=== PATIENT | female | born 1955 | race Caucasian/White ===

== ENCOUNTER 2025-03-18 18:17 | Emergency (ER) | payer MEDICARE ==
[2025-03-18 18:43] VITALS: TEMP 97.2
[2025-03-18 19:42] LABS: BASOPHIL % 0.7 % (0.1-1.2); Basophil (Absolute #) 0.07 x10^3/uL (0.01-0.08); Eosinophil (Absolute #) 0.12 x10^3/uL (0.04-0.36); Hematocrit 34.9 % (34.1-44.9); Hemoglobin 10.5 g/dL (11.2-15.7); IMMATURE GRAN # 0.03 x10^3u/L (0.001-0.031); IMMATURE GRAN % 0.3 % (0.001-0.429); Lymphocyte (Absolute #) 1.14 x10^3/uL (1.18-3.74); Mean Corpuscular Hemoglobin 25.3 pg (25.6-32.2); Mean Corpuscular Hgb Concent. 30.1 g/dL (32.2-35.5); Monocyte (Absolute #) 0.68 x10^3/uL (0.24-0.86); NUCLEATED RBC # 0.00 x10^3u/L (0.00-0.012); NUCLEATED RBC % 0.0 % (0.00-0.2); Platelet Count 396 x10^3/uL (182-369); Red Blood Count 4.15 x10^6/uL (3.93-5.22); White Blood Count 9.7 x10^3/uL (3.98-10.04)
[2025-03-18 20:03] LABS: Calcium 9.6 mg/dL (8.4-10.2); Carbon Dioxide 27.0 mmol/L (22-30); Creatinine 1 1.55 mg/dL (0.52-1.04); EST GLOMERULAR FILTRATION RATE 35.4 ML/MIN; Glucose 104.0 mg/dL (74-106); Potassium 4.5 mmol/L (3.5-5.1); SGOT/AST 23.0 U/L (14-36); SGPT/ALT 19.0 U/L (0-35); Total Protein 6.6 g/dL (6.3-8.2)
--- NOTE | 2025-03-18 20:05 | ERPHSYRPT ---
- History of Present Illness Time Seen by Provider: 03/18/25 19:15 Source: patient, family Patient Subjective Stated Complaint: I was at [employer] and sat down in a chair and everything started going "white and I was sweaty". Triage Nursing Assessment: Patient arrived by ambulance, transferred self to bed, vitals wnl, skin warm, dry, pink. Lungs clear, no resp distress. radial bilat pulses regular. 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 no edema to BLE. Patient denies any chest pain or SOB. Physician History: Syncope, patient had 2 syncopal episodes prior to coming to the Emergency Department, she apparently been cooking most of the day sat down in the chair and then blacked out for about 10 seconds, she apparently had not eaten or drinking anything most of the afternoon, she has had a 20 pound weight loss since starting [email or web address], At the time examination she denied any chest pain, abdominal pain, N/V or Headache. Witnessed: by family Prior Episodes: multiple episodes today Timing/Duration: today Context: sitting Loss of Consciousness: brief (seconds) Charcter of event(s): became unresponsive Allergies/Adverse Reactions: Sulfa (Sulfonamide Antibiotics) Adverse Reaction (Unknown, Verified 07/15/21 09:39) Home Medications: Levothyroxine Sodium 75 Mcg [Synthroid 75 Mcg] 75 mcg PO DAILY 02/27/17 [History] Metoprolol Succinate 25 mg PO BID 02/27/17 [History] lisinopriL [Zestril] 5 mg PO DAILY 02/27/17 [History] Hx Tetanus, Diphtheria Vaccination/Date Given: Yes Hx Influenza Vaccination/Date Given: Yes Hx Pneumococcal Vaccination/Date Given: Yes Immunizations Up to Date: Yes Travel Risk - International Travel Have you traveled outside of the country in past 3 weeks: No - Emerging Infectious Disease Are you exhibiting symptoms associated with any current EIDs: No - Past Medical History Pertinent Past Medical History: Yes Neurological History: No Pertinent History ENT History: No Pertinent History Cardiac History: Hypertension, Myocardial Infarction ([place]) Respiratory History: Asthma, COPD Endocrine Medical History: Hypothyroidism Musculoskeletal History: Osteoarthritis GI Medical History: No Pertinent History, GERD, Gallbladder Disease History: No Pertinent History Psycho-Social History: No Pertinent History Female Reproductive Disorders: No Pertinent History Other Medical History: R TKA 11/13/22 - Past Surgical History Past Surgical History: Yes Neuro Surgical History: No Pertinent History Cardiac: No Pertinent History Respiratory: No Pertinent History Gastrointestinal: Cholecystectomy Genitourinary: No Pertinent History Musculoskeletal: Joint Replacement Female Surgical History: Tubal Ligation, Dilation & Curettage Other Surgical History: D&C x two, bilat knee replacements - Social History Smoking Status: Never smoker Exposure to second hand smoke: No Drug Use: none - Social Determinants of Health Will the patient participate in the screening: Declined to provide Physical Exam - Nursing Vital Signs Nursing Vital Signs: Initial Vital Signs Temperature 97.2 F 03/18/25 18:17 Pulse Rate 77 03/18/25 18:17 Respiratory Rate 14 03/18/25 18:17 Blood Pressure 120/87 03/18/25 18:17 O2 Sat by Pulse Oximetry 97 03/18/25 18:17 Pain Scale Pain Intensity 0 - Physical Exam General Appearance: no apparent distress, alert Eye Exam: bilateral eye: PERRL, EOMI Ears, Nose, Throat Exam: normal ENT inspection, pharynx normal, moist mucous membranes Neck Exam: normal inspection, non-tender, supple, full range of motion Respiratory: normal breath sounds, lungs clear, No chest tenderness, No respiratory distress Cardiovascular: regular rate/rhythm, capillary refill <2 sec, No murmur, No pulse deficit Gastrointestinal: soft, No tenderness, No distention, No mass Back Exam: normal inspection, normal range of motion, No CVA tenderness, No vertebral tenderness Extremity Exam: normal inspection, normal range of motion, pelvis stable, No tenderness Mental Status: alert, oriented x 3, 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 Exam: normal speech, PERRL, No facial droop Coordination/Gait: normal finger to nose Motor/Sensory: no motor deficit, no sensory deficit, no pronator drift Skin Exam: normal color, warm, dry, No rash SpO2 Interpretation: normal SpO2: 97 - Radiology Exams Chest X-ray Interpretation: Interpreted by me, No Pneumonia, No Pneumothorax, Nml Alignment, No Infiltrates Ordered Tests: Active Orders 24 hr Category Date Time Status Ambulate Patient ROUTINE Care 03/18/25 21:16 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 Care 03/18/25 19:21 Active EKG-ER Only STAT Care 03/18/25 19:20 Active CHEST 1 VIEW (PORTABLE) Stat Exams 03/18/25 19:21 Taken CBC W DIFF Stat Lab 03/18/25 19:39 Completed CMP Stat Lab 03/18/25 19:39 Completed CULTURE,URINE Stat Lab 03/18/25 20:32 Received UA W/RFX UR CULTURE Stat Lab 03/18/25 20:32 Completed Lab/Rad Data: Laboratory Result Diagrams 03/18/25 19:39 03/18/25 19:39 Laboratory Results 03/18/25 03/18/25 03/18/25 Range/Units 20:32 19:39 19:39 WBC 9.7 (3.98-10.04) x10^3/uL RBC 4.15 (3.93-5.22) x10^6/uL Hgb 10.5 L (11.2-15.7) g/dL Hct 34.9 (34.1-44.9) % MCV 84.1 (79.4-94.8) fL MCH 25.3 L (25.6-32.2) pg MCHC 30.1 L (32.2-35.5) g/dL RDW 14.6 H (11.7-14.4) % Plt Count 396 H (182-369) x10^3/uL MPV 10.7 (9.4-12.3) fL Gran % 79.0 H (34.0-71.1) % Immature Gran % (Auto) 0.3 (0.001-0.429) % Nucleat RBC Rel Count 0.0 (0.00-0.2) % Eos # (Auto) 0.12 (0.04-0.36) x10^3/uL Immature Gran # (Auto) 0.03 (0.001-0.031) x10^3u/L Absolute Lymphs (auto) 1.14 L (1.18-3.74) x10^3/uL Absolute Monos (auto) 0.68 (0.24-0.86) x10^3/uL Absolute Nucleated RBC 0.00 (0.00-0.012) x10^3u/L Lymphocytes % 11.8 L (19.3-51.7) % Monocytes % 7.0 (4.7-12.5) % Eosinophils % 1.2 (0.7-5.8) % Basophils % 0.7 (0.1-1.2) % Absolute Granulocytes 7.63 H (1.56-6.13) x10^3/uL Basophils # 0.07 (0.01-0.08) x10^3/uL Sodium 138 (135-145) mmol/L Potassium 4.5 (3.5-5.1) mmol/L Chloride 104 (98-107) mmol/L Carbon Dioxide 27 (22-30) mmol/L Anion Gap 11.7 (5-15) MEQ/L BUN 36 H (7-17) mg/dL Creatinine 1.55 H (0.52-1.04) mg/dL Estimated GFR 35.4 ML/MIN Glucose 104 (74-106) mg/dL Calcium 9.6 (8.4-10.2) mg/dL Total Bilirubin 0.10 L (0.2-1.3) mg/dL AST 23 (14-36) U/L ALT 19 (0-35) U/L Alkaline Phosphatase 63 (38-126) U/L Serum Total Protein 6.6 (6.3-8.2) g/dL Albumin 4.0 (3.5-5.0) g/dL Urine Color Yellow (Yellow) Urine Appearance Clear (Clear) Urine pH 5.0 (4.6-8.0) Ur Specific [place] 1.020 (1.005-1.030) Urine Protein Negative (Negative) Urine Glucose (UA) Negative (Negative) mg/dL Urine Ketones Negative (Negative) Urine Blood Negative (Negative) Urine Nitrite Negative (Negative) Urine Bilirubin Negative (Negative) Urine Urobilinogen 0.2 (0.2) mg/dL Ur Leukocyte Esterase Moderate A (Negative) U Hyaline Cast (Auto) 0-2 (0-2) /LPF Urine Microscopic RBC 0-2 (0-5) /HPF Urine Microscopic WBC 6-10 A (0-5) /HPF Ur Epithelial Cells Moderate A (None Seen) /HPF Urine Bacteria Few A (None Seen) /HPF Urine Culture Reflexed YES (NO) - Progress Progress Note: 03/18/25 22:01 Discussed results, patient ambulated without difficulty, recommend outpatient follow-up and treatment - Departure Departure Disposition: Home Clinical Impression: Syncope and collapse Condition: Stable Critical Care Time: No Referrals: SATHYA,CRISTI J., [facility] [Primary Care Provider, [facility]] - Follow Up with PCP/3 days Instructions: Syncope (Fainting) (DC) Additional Instructions: metoprolol 25 mg twice daily, Continue all other medications
[2025-03-18 21:47] LABS: Glucose, Urine Negative (Negative); Protein,Urine Dip Negative (Negative); RBC 0-2 /HPF (0-5)
[2025-03-18 22:01] VITALS: O2SAT 97
--- NOTE | 2025-03-18 22:06 | XRAY ---
Indication: Syncope. Comparison: None Portable apical lordotic chest demonstrates right mid/left lung base discoid atelectasis/scarring and focal eventration right hemidiaphragm. No focal infiltrate, consolidation, or large effusion. Heart borderline enlarged with moderate size hiatal hernia. Bony thorax intact with osteopenia. Impression: Nonacute chest with chronic features.
[2025-03-18 22:10] VITALS: BP 105/67; PULSE 73; RESP 19
== END 2025-03-18 22:29 | disposition home or self-care (01) ==
LOC: ED 18:17
DX: R55 Syncope and collapse (principal); I10 Essential (primary) hypertension; Z79.899 Other long term (current) drug therapy